=== PATIENT | female | born 1995 | race Caucasian/White ===

== ENCOUNTER 2017-02-18 16:39 | Emergency (ER) | payer MEDICAID ==
[~2017-02-18] VITALS: Ht 170.2 cm; Wt 201.0 kg
[~2017-02-18 16:39] MED LIST: CEPH500 PO
[2017-02-18 16:43] VITALS: BP 144/92; PULSE 78; RESP 18; TEMP 97.7; O2SAT 98
[2017-02-18 17:23] LABS: BLOOD, URINE LARGE (NEG); GLUCOSE,URINE NEG (NEG); KETONE, URINE NEG (NEG); NITRITE,URINE NEG (NEG)
[2017-02-18 17:31] LABS: URINE COLOR YELLOW (YELLW/STRAW)
[2017-02-18 17:33] LABS: COMMENT (UR) CULTURE INDICATED; CULTURE IF INDICATED CULTURE INDICATED; SQUAMOUS EPITHELIAL CELL URINE 0-5 /hpf (0-5)
[2017-02-18] MEDS ORDERED: MOBI15TA PO (17:43)
[2017-02-18] MEDS ORDERED: BACT800T5 PO (17:43)
--- NOTE | 2017-02-18 17:44 | PD ---
HPI Chief Complaint: Complaint Time Seen by Provider: 17:10 Travel History International Travel<30 days: No Contact w/Intl Traveler<30days: No Traveled to known affect area: No History of Present Illness HPI 21-year-old female complains of abdominal pain, vaginal spotting, dysuria and frequency, nausea vomiting. Patient states that she started having intermittent nausea vomiting for the past 5 days. Patient started having low abdominal cramping and sharp pain since yesterday. Patient's is noticed vaginal spotting today. Patient also complaining of dysuria and frequency for the past 2 days. Patient denies any fever chills. Patient denies any back pain. Patient states that she is late for her menstruation period this month. Patient denies any headache. Patient denies any chest pain or shortness of breath. On a scale of 1-10 the pain is a 10 PFSH Past Medical History Asthma: Yes ( A CHILD) Anxiety: Yes Depression: Yes Diminished Hearing: No Immunizations Current: Yes Influenza Vaccination: No ?: Not LMP: 01/14/17 : 1 Miscarriage: 1 Social History Alcohol Use: Yes (RARELY) Tobacco Use: Yes (OCC 3-4 CIGGS/WK) Substance Use: No Allergies-Medications (Allergen,Severity, Reaction): Coded Allergies: No Known Allergies (Verified , 06/17/16) Reported Meds & Prescriptions Reported Meds & Active Scripts Active Review of Systems General / Constitutional: No: Fever Eyes: No: Visual changes HENT: No: Headaches Cardiovascular: No: Chest Pain or Discomfort Respiratory: No: Shortness of Breath Gastrointestinal: Positive: Abdominal Pain Genitourinary: Positive: Frequency, Dysuria, Vaginal Bleeding Musculoskeletal: No: Pain Skin: No Rash Neurologic: No: Weakness Psychiatric: No: Depression Endocrine: No: Polydipsia Hematologic/Lymphatic: No: Easy Bruising Physical Exam Narrative GENERAL: Well-nourished, well-developed patient. SKIN: Focused skin assessment warm/dry. HEAD: Normocephalic. EYES: No scleral icterus. No injection or drainage. NECK: Supple, trachea midline. No JVD or lymphadenopathy. CARDIOVASCULAR: Regular rate and rhythm without murmurs, gallops, or rubs. RESPIRATORY: Breath sounds equal bilaterally. No accessory muscle use. GASTROINTESTINAL: Abdomen soft, non-tender, nondistended. MUSCULOSKELETAL: No cyanosis, or edema. BACK: Nontender without obvious deformity. No CVA tenderness. 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 Patient has small amount of whitish discharge in the vaginal vault. No cervical motion tenderness. Uterus is nonenlarged and nontender on palpation. No adnexal masses or tenderness. Data Data Last Documented VS Vital Signs Date Time Temp Pulse Resp B/P Pulse Ox O2 Delivery O2 Flow Rate FiO2 02/18/17 16:43 97.7 78 18 144/92 98 Orders Urinalysis - C+S If Indicated (02/18/17 17:10) Gc And Chlamydia Pcr (02/18/17 17:23) Wet Prep Profile (02/18/17 17:23) Ed Urine Pregnancytest Poc (02/18/17 17:23) Urine Culture (02/18/17 17:15) Labs Laboratory Tests Test 02/18/17 17:15 Urine Color YELLOW Urine Turbidity CLOUDY Urine pH 6.0 Urine Specific [place] 1.015 Urine Protein 100 mg/dL Urine Glucose (UA) NEG mg/dL Urine Ketones NEG mg/dL Urine Occult Blood LARGE Urine Nitrite NEG Urine Bilirubin NEG Urine Leukocyte Esterase SMALL Urine RBC 25-49 /hpf Urine WBC 25-49 /hpf Urine Squamous Epithelial 0-5 /hpf Cells Microscopic Urinalysis Comment CULTURE INDICATED MDM Medical Decision Making Medical Screen Exam Complete: Yes Emergency Medical Condition: Yes Interpretation(s) 1742 PM. UA positive for WBC, RBC. Urine test negative. Differential Diagnosis Differential diagnosis including UTI, pyelonephritis, cervicitis, PID, threatened AB, ectopic . Narrative Course 21-year-old female with low abdominal pain, vaginal spotting, dysuria and frequency. Diagnosis Primary Impression: UTI (urinary tract infection) Qualified Code: N30.00 - Acute cystitis without hematuria Patient Instructions: General Instructions Additional Instructions: Take medications as directed. Follow-up with personal physician. Encourage by mouth fluids. Return if worse. Med/Other Pt SpecificInfo: Prescription(s) given Scripts Meloxicam (Mobic)15 Mg Tab15 Mg PO DAILY #20 TAB Prov:Cedric Harrison MD 02/18/17 Sulfamethoxazole-Trimethoprim (Bactrim DS)800-160 Mg Tab1 Tab PO BID #14 TAB Prov:Cedric Harrison MD 02/18/17 Disposition: 01 DISCHARGE HOME Condition: Stable Cedric Harrison MD February 18, 2017 17:44
[2017-02-18 20:53] LABS: CHLAMYDIA PCR NOT DETECTED (NOT DETECT); NEISSERIA PCR NOT DETECTED (NOT DETECT)
== END 2017-02-18 17:55 | disposition home or self-care (01) ==
LOC: PHED 16:39
DX: N39.0 Urinary tract infection, site not specified (principal); R11.2 Nausea with vomiting, unspecified; J45.909 Unspecified asthma, uncomplicated; F32.9 Major depressive disorder, single episode, unspecified; F41.9 Anxiety disorder, unspecified; F17.210 Nicotine dependence, cigarettes, uncomplicated
CPT/HCPCS: 81001; 84703; 87086; 87210; 87491; 87591; 99284

== ENCOUNTER 2017-03-13 00:20 | Observation (INO) | payer MEDICAID ==
[~2017-03-13] VITALS: Ht 167.6 cm; Wt 181.4 kg
[2017-03-13] VITALS (9 sets, daily range): BP systolic 108–142; BP diastolic 66–86; PULSE 67–97; RESP 18–22; TEMP 96.6–97.9; O2SAT 91–99
[~2017-03-13 00:20] MED LIST changes: +BACT800T5 PO; -CEPH500 PO; +MOBI15TA PO
[2017-03-13] MEDS ORDERED: KETOROLAC TROMETHAMINE 60 MG/2 ML (IM) VIAL IM ONE (01:15)
[2017-03-13] MEDS ORDERED: ORPHENADRINE INJ 60 MG/2 ML AMP IM ONE (01:15)
[2017-03-13] MEDS ORDERED: HYDROmorphone HCL PF 1 MG/ML VIAL IM ONE (02:00)
--- NOTE | 2017-03-13 02:06 | RADHPO ---
EXAM DATE/TIME: 03/13/2017 01:28 [facility] COMPARISON: No previous studies available for comparison. INDICATIONS : Right lumbar spine pain. No known injury. MEDICAL HISTORY : None. SURGICAL HISTORY : None. ENCOUNTER: Initial ACUITY: 2 days PAIN SCORE: 10/10 LOCATION: Right lumbar spine FINDINGS: Two view examination was performed. There are five non-rib bearing vertebral bodies. The vertebral bodies are in normal alignment without evidence of subluxation or scoliosis. The disc spaces are miryam ntained. The pedicles are intact. Bony mineralization is normal. No fracture is identified. CONCLUSION: Normal examination for a patient of this age. Jessee Anglin MD on March 13, 2017 at 2:02 Board Certified Radiologist. This report was verified electronically.
--- NOTE | 2017-03-13 02:08 | RADHPO ---
EXAM DATE/TIME: 03/13/2017 01:36 [facility] COMPARISON: No previous studies available for comparison. INDICATIONS : Right hip pain. No known injury. MEDICAL HISTORY : None. SURGICAL HISTORY : None. ENCOUNTER: Initial ACUITY: 2 days PAIN SCORE: 10/10 LOCATION: Right pelvis FINDINGS: A two view examination of the right hip was performed. The primary and secondary trabecular pattern of the femoral neck is intact. The hip joint is of normal width without significant sclerosis or bon y hypertrophy. The acetabulum is grossly intact. CONCLUSION: Normal examination for a patient of this age. Jessee Anglin MD on March 13, 2017 at 2:04 Board Certified Radiologist. This report was verified electronically.
[2017-03-13] MEDS ORDERED: NAPR500T PO (02:29)
[2017-03-13] MEDS ORDERED: TRAM50TA PO (02:29)
--- NOTE | 2017-03-13 02:29 | PD ---
HPI Chief Complaint: Back/ Neck Pain or Injury Time Seen by Provider: 01:05 Travel History International Travel<30 days: No Contact w/Intl Traveler<30days: No Traveled to known affect area: No History of Present Illness HPI This is a 21-year-old female who has a history of morbid obesity who presents to the emergency department with pain in her right hip and lower back, constant , severe, worse when she walks, improved with rest. The pain is nonradiating. She denies any associated numbness or weakness. She's had no loss of her bowels or bladder. She denies any dysuria, frequency or urgency. She denies any fevers or chills. She's had no injuries. PFSH Past Medical History Asthma: Yes ( A CHILD) Anxiety: Yes Depression: Yes Diminished Hearing: No Immunizations Current: Yes ?: Unknown LMP: on it now : 1 Miscarriage: 1 Social History Alcohol Use: Yes (RARELY) Tobacco Use: Yes (OCC 3-4 CIGGS/WK) Substance Use: No Allergies-Medications (Allergen,Severity, Reaction): Coded Allergies: No Known Allergies (Verified , 03/13/17) Reported Meds & Prescriptions Reported Meds & Active Scripts Active No Active Prescriptions or Reported Medications Review of Systems Except as stated in HPI: all other systems reviewed are Neg Physical Exam Narrative GENERAL: Morbidly obese SKIN: Focused skin assessment warm and dry. HEAD: Atraumatic. Normocephalic. EYES: Pupils equal and round. No injection or drainage. ENT: Moist mucous membranes NECK: Trachea midline. CARDIOVASCULAR: Regular rate and rhythm. No murmur appreciated. RESPIRATORY: Clear to auscultation. Breath sounds equal bilaterally. GASTROINTESTINAL: Abdomen soft, non-tender, nondistended. MUSCULOSKELETAL: No focal midline lumbar tenderness. Pain with straight leg raise on the right. NEUROLOGICAL: Awake and alert. No obvious cranial nerve deficits. 5 out of 5 strength in the bilateral lower extremities with normal gross sensation in the lower extremities to light touch. PSYCHIATRIC: Appropriate mood and affect; insight and judgment normal. Data Data Last Documented VS Vital Signs Date Time Temp Pulse Resp B/P Pulse Ox O2 Delivery O2 Flow Rate FiO2 03/13/17 02:15 18 03/13/17 00:36 97.5 97 132/79 98 Orders Spine, Lumbar - Ltd (Ap & Lat) (03/13/17 ) Hip, Uni(Ap&Lat) Wo Ap Pelvis (03/13/17 ) Orphenadrine Inj (Norflex Inj) (03/13/17 01:15) Ketorolac Inj (Toradol Inj) (03/13/17 01:15) Hydromorphone Pf Inj (Dilaudid Pf Inj) (03/13/17 02:00) MDM Medical Decision Making Medical Screen Exam Complete: Yes Emergency Medical Condition: Yes Interpretation(s) Afebrile, mild tachycardia Last 24 hours Impressions Lumbar Spine X-Ray 03/13/17 0000 Signed Impressions: Service Date/Time: Monday, March 13, 2017 01:28 - CONCLUSION: Normal examination for a patient of this age. Jessee Anglin MD Hip X-Ray 03/13/17 0000 Signed Impressions: Service Date/Time: Monday, March 13, 2017 01:36 - CONCLUSION: Normal examination for a patient of this age. Jessee Anglin MD Differential Diagnosis Compression fracture, osteoarthritis, degenerative disc disease Narrative Course This is a 21-year-old female who presents to the emergency department with right sided back and hip pain. She has a positive straight leg raise on the right. I suspect she has either a herniated disc or lumbar strain. She has a normal neurologic exam and no red flags for cauda equina syndrome. X-rays of the low back and hip were obtained which were reassuring. Unfortunately patient is at very high risk for a musculoskeletal injury given her obesity. She was given pain control, muscle relaxer and an anti-inflammatory. She'll be discharged home and referred to orthopedics as an outpatient. Diagnosis Primary Impression: Lumbar strain Qualified Code: S39.012A - Lumbar strain, initial encounter Referrals: Harish Modi Jr., MD Patient Instructions: General Instructions Additional Instructions: If you develop weakness of your legs, difficulty walking, numbness of your legs or your genital or rectal area, loss of your bowel or bladder, or difficulty urinating return to the emergency department immediately. Followup with your primary care physician in one week if your symptoms have not improved. Med/Other Pt SpecificInfo: Prescription(s) given Scripts Naproxen 500 Mg [id number] Mg PO BID PRN (PAIN SCALE 4 TO 10) #20 TAB Prov:Shayna Pineda MD 03/13/17 Tramadol 50 Mg Tab50 Mg PO Q6H PRN (PAIN) #10 TAB Prov:Shayna Pineda MD 03/13/17 Disposition: 01 DISCHARGE HOME Condition: Stable Shayna Pineda MD Mar 13, 2017 02:29
[2017-03-13 03:08] LABS: AUTOMATED NEUTROPHIL # 6.1 TH/MM3 (1.8-7.7); BASOPHIL # 0.4 TH/MM3 (0-0.2); BASOPHIL % 3.8 % (0.0-2.0); EOSINOPHIL # 0.4 TH/MM3 (0-0.4); EOSINOPHIL % 3.5 % (0.0-4.0); HEMATOCRIT 39.1 % (35.0-46.0); HEMO FLAGS DIFF FINAL; LYMPH % 33.8 % (9.0-44.0); LYMPHOCYTE # 3.8 TH/MM3 (1.0-4.8); MEAN CELL VOLUME 87.2 FL (80.0-100.0); MEAN CORPUSCULAR HEMOGLOBIN 29.3 PG (27.0-34.0); MEAN CORPUSCULAR HGB CONC 33.5 % (32.0-36.0); MONO % 5.3 % (0.0-8.0); NEUT % 53.6 % (16.0-70.0); PLATELET COUNT 245 TH/MM3 (150-450); RED BLOOD COUNT 4.49 MIL/MM3 (4.00-5.30); RED CELL DISTRIBUTION WIDTH 12.9 % (11.6-17.2); WHITE BLOOD COUNT 11.3 TH/MM3 (4.0-11.0)
[2017-03-13] MEDS ORDERED: ONDANSETRON HCL 4 MG/2 ML VIAL IV ONE (03:15)
[2017-03-13 03:16] LABS: CHLORIDE 107 MEQ/L (98-107); POTASSIUM 3.7 MEQ/L (3.5-5.1); SODIUM (NA) 141 MEQ/L (136-145)
[2017-03-13 03:20] LABS: ANION GAP 9 MEQ/L (5-15); BICARBONATE 24.6 MEQ/L (21.0-32.0); BLOOD UREA NITROGEN 15 MG/DL (7-18)
[2017-03-13 03:23] LABS: ALT (GPT) 43 U/L (9-42); AST (GOT) 16 U/L (16-38); GLOMERULAR FILTRATION RATE 71 ML/MIN (>89)
[2017-03-13 03:24] LABS: TOTAL BILIRUBIN ADULT 0.4 MG/DL (0.2-1.0)
[2017-03-13 03:26] LABS: ALKALINE PHOSPHATASE 89 U/L (45-117)
[2017-03-13] MEDS ORDERED: SODIUM CHLOR 0.9% 1000 ML INJ 1,000 ML IV ONE (03:30)
[2017-03-13 03:59] LABS: GLUCOSE,URINE NEG (NEG); KETONE, URINE NEG (NEG); NITRITE,URINE NEG (NEG); PH, URINE 5.5 (5.0-8.5)
[2017-03-13 04:06] LABS: BLOOD, URINE MOD (NEG); URINE COLOR YELLOW (YELLW/STRAW)
[2017-03-13 04:07] LABS: COMMENT (UR) CULT NOT INDICATED; CULTURE IF INDICATED CULT NOT INDICATED; SQUAMOUS EPITHELIAL CELL URINE 0-5 /hpf (0-5); WBC, URINE 0-2 /hpf (0-5)
[2017-03-13] MEDS ORDERED: IOHEXOL 350 MG/ML 10 ML VIAL (for RAD DIAG) IV ONE (04:37)
--- NOTE | 2017-03-13 04:40 | RADHPO ---
EXAM DATE/TIME: 03/13/2017 03:48 [facility] COMPARISON: No previous studies available for comparison. INDICATIONS : Low back pain with nausea past 2 days. IV CONTRAST: 70 cc Omnipaque 350 (iohexol) IV ORAL CONTRAST: No oral contrast ingested. RADIATION DOSE: 44.63 CTDIvol (mGy) MEDICAL HISTORY : None SURGICAL HISTORY : None. ENCOUNTER: Initial ACUITY: 2 days PAIN SCALE: 5/10 LOCATION: low back TECHNIQUE: Volumetric scanning of the abdomen and pelvis was performed. Using automated exposure control and ad justment of the mA and/or kV according to patient size, radiation dose was kept as low as reasonably achievable to obtain optimal diagnostic quality images. FINDINGS: Lung bases are clear. No pleural or pericardial effusion. Mild fatty liver. Spleen, adrenals, kidneys and pancreas unremarkable. No gallstones or biliary ducta l dilatation. No free fluid. No bowel obstruction. No adenopathy. CONCLUSION: 1. No acute findings on abdomen pelvic CT. Fatty liver. Small hiatal hernia. Jessee Anglin MD on March 13, 2017 at 4:34 Board Certified Radiologist. This report was verified electronically.
--- NOTE | 2017-03-13 04:43 | RADHPO ---
EXAM DATE/TIME: 03/13/2017 03:48 [facility] COMPARISON: No previous studies available for comparison. INDICATIONS : Low back pain past 2 days. RADIATION DOSE: ; Reconstructed from previous dataset MEDICAL HISTORY : None SURGICAL HISTORY : None. ENCOUNTER: Initial ACUITY: 2 days PAIN SCALE: 5/10 LOCATION: low back TECHNIQUE: Volumetric scanning of the lumbar spine was performed. Multiplanar reconstructions in the sagittal, coronal and oblique axial planes were performed. Using automated exposure control and adjustment of the mA and/or kV according to patient size, radiation dose was kept as low as reasonably achievable t o obtain optimal diagnostic quality images. FINDINGS: VERTEBRAE: Normal vertebral body height. ALIGNMENT: No evidence of subluxation. T12-L1: The thecal sac has a normal diameter. No evidence of disc bulge or protrusion. The neural foramina are patent bilaterally. L1-L2: The thecal sac has a normal diameter. No evidence of disc bulge or protrusion. The neural foramina are patent bilaterally. L2-L3: There is a suspected left paracentral disc protrusion with at least mild stenosis of the left lateral recess. L3-L4: Suspected central disc protrusion present with facet arthropathy and at least mild canal stenosis. L4-L5: The thecal sac has a normal diameter. No evidence of disc bulge or protrusion. The neural foramina are patent bilaterally. L5-S1: The thecal sac has a normal diameter. No evidence of disc bulge or protrusion. The neural foramina are patent bilaterally. CONCLUSION: 1. Spinal canal contents not well visualized secondary to patient's size. There is a suspected left p aracentral disc protrusion at L2-3 and central disc protrusion at L3-4 resulting in an at least mild stenosis. No fracture or spondylolisthesis. Jessee Anglin MD on March 13, 2017 at 4:39 Board Certified Radiologist. This report was verified electronically.
[2017-03-13] MEDS ORDERED: ONDANSETRON HCL 4 MG/2 ML VIAL IVP PRN (05:00)
[2017-03-13] MEDS ORDERED: SODIUM CHLORIDE 0.9% FLUSH 10 ML FLUSH IV FLUSH PRN (05:00)
[2017-03-13] MEDS ORDERED: LACTULOSE SYRUP 20 GM/30 ML CUP PO PRN (05:00)
[2017-03-13] MEDS ORDERED: SENNOSIDES 8.6 MG TAB PO PRN (05:00)
[2017-03-13] MEDS ORDERED: HYDROmorphone HCL PF 1 MG/ML VIAL IV PRN (05:00)
[2017-03-13] MEDS ORDERED: MAGNESIUM HYDROXIDE SUSP 30 ML CUP PO PRN (05:00)
[2017-03-13] MEDS ORDERED: BISACODYL 10 MG SUPP RECTAL PRN (05:00)
[2017-03-13] MEDS ORDERED: methylPREDNISolone SOD SUCC 125 MG/2 ML VIAL IV PUSH ONE (05:00)
[2017-03-13] MEDS ORDERED: ACETAMINOPHEN 325 MG TAB PO PRN (05:00)
[2017-03-13] MEDS ORDERED: DIAZEPAM 10 MG TAB PO PRN (05:00)
--- NOTE | 2017-03-13 05:36 | PD ---
Data Data Last Documented VS Vital Signs Date Time Temp Pulse Resp B/P Pulse Ox O2 Delivery O2 Flow Rate FiO2 03/13/17 03:15 82 18 108/69 99 Nasal Cannula 2 03/13/17 00:36 97.5 Orders Spine, Lumbar - Ltd (Ap & Lat) (03/13/17 ) Hip, Uni(Ap&Lat) Wo Ap Pelvis (03/13/17 ) Orphenadrine Inj (Norflex Inj) (03/13/17 01:15) Ketorolac Inj (Toradol Inj) (03/13/17 01:15) Hydromorphone Pf Inj (Dilaudid Pf Inj) (03/13/17 02:00) Complete Blood Count With Diff (03/13/17 02:55) Comprehensive Metabolic Panel (03/13/17 02:55) Urinalysis - C+S If Indicated (03/13/17 02:55) Ed Urine Pregnancytest Poc (03/13/17 02:55) Ondansetron Inj (Zofran Inj) (03/13/17 03:15) Ct Abd/Pel W Iv Contrast(Rout) (03/13/17 ) Ct Lumb Spine W/O Contrast (03/13/17 ) Sodium Chlor 0.9% 1000 Ml Inj (Ns 1000 M (03/13/17 03:30) Iohexol 350 Inj (Omnipaque 350 Inj) (03/13/17 04:37) Admit Order (Ed Use Only) (03/13/17 04:52) Labs Laboratory Tests Test 03/13/17 03/13/17 03:02 03:40 White Blood Count 11.3 TH/MM3 Red Blood Count 4.49 MIL/MM3 Hemoglobin 13.1 GM/DL Hematocrit 39.1 % Mean Corpuscular Volume 87.2 FL Mean Corpuscular Hemoglobin 29.3 PG Mean Corpuscular Hemoglobin 33.5 % Concent Red Cell Distribution Width 12.9 % Platelet Count 245 TH/MM3 Mean Platelet Volume 9.3 FL Neutrophils (%) (Auto) 53.6 % Lymphocytes (%) (Auto) 33.8 % Monocytes (%) (Auto) 5.3 % Eosinophils (%) (Auto) 3.5 % Basophils (%) (Auto) 3.8 % Neutrophils # (Auto) 6.1 TH/MM3 Lymphocytes # (Auto) 3.8 TH/MM3 Monocytes # (Auto) 0.6 TH/MM3 Eosinophils # (Auto) 0.4 TH/MM3 Basophils # (Auto) 0.4 TH/MM3 CBC Comment DIFF FINAL Differential Comment Sodium Level 141 MEQ/L Potassium Level 3.7 MEQ/L Chloride Level 107 MEQ/L Carbon Dioxide Level 24.6 MEQ/L Anion Gap 9 MEQ/L Blood Urea Nitrogen 15 MG/DL Creatinine 1.00 MG/DL Estimat Glomerular Filtration 71 ML/MIN Rate Random Glucose 95 MG/DL Calcium Level 8.3 MG/DL Total Bilirubin 0.4 MG/DL Aspartate Amino Transf 16 U/L (AST/SGOT) Alanine Aminotransferase 43 U/L (ALT/SGPT) Alkaline Phosphatase 89 U/L Total Protein 6.9 GM/DL Albumin 3.2 GM/DL Urine Color YELLOW Urine Turbidity CLEAR Urine pH 5.5 Urine Specific [place] 1.027 Urine Protein NEG mg/dL Urine Glucose (UA) NEG mg/dL Urine Ketones NEG mg/dL Urine Occult Blood MOD Urine Nitrite NEG Urine Bilirubin NEG Urine Leukocyte Esterase NEG Urine RBC 4-9 /hpf Urine WBC 0-2 /hpf Urine Squamous Epithelial 0-5 /hpf Cells Urine Bacteria NONE /hpf Microscopic Urinalysis Comment CULT NOT INDICATED MDM Supervised Visit with CLIFF: No Narrative Course Unfortunately upon discharge when the patient went to stand she slumped to the floor and was unable to get back up. She was complaining of severe Crohn's improved. The ER staff was able to help assist her back into bed. Her mobility is significantly limited by her body habitus. Labs were obtained and CT abdomen and pelvis and lumbar spine were obtained. She does have some evidence of disc herniation on lumbar CT. I suspect this is the etiology of her symptoms. Plan for observation and pain control as well as physical therapy consult. Physician Communication Physician Communication Discussed with Dr. Sanchez Diagnosis Primary Impression: Lumbar herniated disc Referrals: Harish Modi Jr., MD Patient Instructions: General Instructions, Narcotic given in the ED, Sprain ( ED) Departure Forms: Tests/Procedures Additional Instruction: If you develop weakness of your legs, difficulty walking, numbness of your legs or your genital or rectal area, loss of your bowel or bladder, or difficulty urinating return to the emergency department immediately. Followup with your primary care physician in one week if your symptoms have not improved. Scripts Naproxen 500 Mg [id number] Mg PO BID PRN (PAIN SCALE 4 TO 10) #20 TAB Prov:Shayna Pineda MD 03/13/17 Tramadol 50 Mg Tab50 Mg PO Q6H PRN (PAIN) #10 TAB Prov:Shayna Pineda MD 03/13/17 Disposition: 01 DISCHARGE HOME Condition: Stable Shayna Pineda MD Mar 13, 2017 05:36
[2017-03-13] MEDS ORDERED: SODIUM CHLORIDE 0.9% FLUSH 10 ML FLUSH IV FLUSH SCH (09:00)
[2017-03-13] MEDS ORDERED: HEPARIN SODIUM - SQ 10,000 UNITS/ML VIAL SQ SCH (09:00)
[2017-03-13] MEDS ORDERED: DOCUSATE SODIUM 50 MG/SENNA 8.6 MG TAB PO SCH (09:00)
--- NOTE | 2017-03-13 11:36 | PD.PN.STU ---
Subjective Remarks Patient is a 21 yo obese female presenting with acute onset back pain. Her pain started Wednesday morning 03/10, after she woke up. She thought it was due to her sleep position. Pain worsened throughout the day at work and she started taking Ibuprofen and Flexeril which did not relieve her symptoms. The next day she stayed home and in bed most of the day. Wednesday her pain worsened when she was walking to her car and felt like she couldn't walk. She was then brought to the ED. Her pain then was a 10/10. She describes the pain as constant and sharp. Pain is localized across her lower back, worse on her right side. Nonradiating. Feels like she has a back spasm every 30 minutes. Current pain is 6-7/10. She says she does not want to lift her left leg because it makes her back pain worse. Denies numbness, weakness or tingling in her extremities. Denies chest pain, shortness of breath, headache, changes in vision. Denies urinary symptoms. Had a UTI 1 week ago that was treated and has since resolved. No history of trauma to her back or fractures. This is the first time she has experienced this back pain. In the ED she received a dose of IV steroids and Dilaudid, Toradol and Norflex which did not relieve her symptoms. In the ED she fell off the bed when trying to get out of bed. She did not hit her head or pass out. PMH: anxiety, says she has "panic attacks" 2 times per week. She has never been diagnosed with anxiety and is not currently being treated. FH: Noncontributory Social: admits to marijuana use. No other illicit drug use or tobacco or alcohol use. Sexually active with her boyfriend that she lives with. They do not use protection and she is not on control. 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 Allergies: none Objective Vitals Vital Signs Date Time Temp Pulse Resp B/P Pulse Ox O2 Delivery O2 Flow Rate FiO2 03/13/17 08:00 97.7 67 22 113/75 91 03/13/17 05:50 97.9 82 20 129/69 98 03/13/17 05:50 97.9 82 20 129/69 98 03/13/17 05:39 86 20 114/66 95 03/13/17 05:05 88 20 110/71 98 Nasal Cannula 2 03/13/17 03:15 82 18 108/69 99 Nasal Cannula 2 03/13/17 02:35 73 20 127/70 97 Room Air 03/13/17 02:15 18 03/13/17 02:15 18 03/13/17 00:36 97.5 97 18 132/79 98 I/O 03/12/17 03/12/17 03/12/17 03/13/17 03/13/17 03/13/17 07:00 15:00 23:00 07:00 15:00 23:00 Intake Total 1000 ml Balance 1000 ml Intake IV Total 1000 ml # Voids 1 Result Diagram: 03/13/17 0302 03/13/17 0302 Imaging Last Impressions Lumbar Spine X-Ray 03/13/17 0000 Signed Impressions: Service Date/Time: Monday, March 13, 2017 01:28 - CONCLUSION: Normal examination for a patient of this age. Jessee Anglin MD Lumbar Spine CT 03/13/17 0000 Signed Impressions: Service Date/Time: Monday, March 13, 2017 03:48 - CONCLUSION: 1. Spinal canal contents not well visualized secondary to patient's size. There is a suspected left paracentral disc protrusion at L2-3 and central disc protrusion at L3-4 resulting in an at least mild stenosis. No fracture or spondylolisthesis. Jessee Anglin MD Hip X-Ray 03/13/17 0000 Signed Impressions: Service Date/Time: Monday, March 13, 2017 01:36 - CONCLUSION: Normal examination for a patient of this age. Jessee Anglin MD Abdomen/Pelvis CT 03/13/17 0000 Signed Impressions: Service Date/Time: Monday, March 13, 2017 03:48 - CONCLUSION: 1. No acute findings on abdomen pelvic CT. Fatty liver. Small hiatal hernia. Jessee Anglin MD Objective Remarks General: pleasant obese female in no acute distress. Able to maintain adequate conversation with eye contact. Cardiac: RRR, normal S1/S2, no murmurs, rubs or gallops. No peripheral edema. Peripheral pulses 2+ Pulmonary: Clear to auscultation bilaterally Musculoskeletal: No obvious deformities to back or extremities. No bruising, erythema or swelling present. Paraspinal muscle tenderness present. Mild pain when lifting her left leg. Neurological: She is alert and oriented. A/P Assessment and Plan 1. Musculoskeletal back pain: pain most likely due to herniated disc at L3-L4. - Patient is currently stable. Adjusting pain management with muscle relaxer and antiinflammatory, and low dose oral narcotic. - Advised patient to try using a heating pad for further pain relief and physical therapy. - Also discussed weight loss 2. Obesity BMI 64.5 - encouraged weight loss and discussed this being a potential aggravating factor to her back pain 3. Mild leukocytosis - etiology unclear, may be due to menstrual cycle or back inflammation. No active infection. 4. Nonspecific anxiety - recommend outpatient follow up with PCP, or psychologist/psychiatrist. Will try Xanax in the meantime to control her current symptoms. Discharge planning: Will discharge home when ambulation improves. Plan was discussed with the patient and her mother. Patient agreed with plan. Medical Decision Making Impression and Plan The exam, history, and the medical decision-making described in the above note were completed with my assistance as the dictating practitioner. I attest that I had a [id number] encounter with the patient on the same day, and personally performed all of the history, exam, or medical decision making. I reviewed and agree with the plan. Светлана Damon Mar 13, 2017 11:36 Maranda Domínguez MD Mar 13, 2017 11:38
[2017-03-13] MEDS ORDERED: oxyCODONE/ACETAMINOPHEN 7.5 MG/325 MG TAB PO PRN (12:00)
[2017-03-13] MEDS ORDERED: CARISOPRODOL 350 MG TAB PO SCH (12:00)
[2017-03-13] MEDS ORDERED: NAPROXEN 375 MG TAB PO SCH (12:00)
[2017-03-13] MEDS ORDERED: ALPRAZolam 0.5 MG TAB PO ONE (12:00)
[2017-03-13] MEDS ORDERED: CARI350T25 PO (13:16)
[2017-03-13] MEDS ORDERED: OXYC1TAB35 PO (13:16)
--- NOTE | 2017-03-13 13:16 | HHI.DCPOC ---
Discharge Care Plan Diagnosis: (1) Morbid obesity (2) Lumbar herniated disc Goals to Promote Your Health * To prevent worsening of your condition and complications * To maintain your health at the optimal level Directions to Meet Your Goals Take your medications as prescribed Follow your dietary instruction Follow activity as directed Keep your appointments as scheduled Take your immunizations and boosters as scheduled If your symptoms worsen call your PCP, if no PCP go to Urgent Care Center or Emergency Room Smoking is Dangerous to Your Health. Avoid second hand smoke Call the 24-hour hour crisis hotline for domestic abuse at Maranda Domínguez MD Mar 13, 2017 13:16
[2017-03-13] MEDS ORDERED: WALKER WHEELS/F1 MIS (15:10)
[2017-03-13] MEDS ORDERED: COMMODE 3-IN-11 MIS (15:10)
== END 2017-03-13 15:20 | disposition home or self-care (01) ==
LOC: PHED 00:20 → PHEDA 04:53 → PH3B 05:45
PROVIDERS: ADMIT Hospitalist; ATTEND Hospitalist
DX: M51.26 Other intervertebral disc displacement, lumbar region (principal); R00.0 Tachycardia, unspecified; R11.0 Nausea; K44.9 Diaphragmatic hernia without obstruction or gangrene; K76.0 Fatty (change of) liver, not elsewhere classified; M48.06 Spinal stenosis, lumbar region; F32.9 Major depressive disorder, single episode, unspecified; F41.9 Anxiety disorder, unspecified; E66.01 Morbid (severe) obesity due to excess calories; F17.210 Nicotine dependence, cigarettes, uncomplicated; F12.90 Cannabis use, unspecified, uncomplicated
CPT/HCPCS: 72100; 72131; 73502; 74177; 80053; 81001; 84703; 85025; 96374; 96375; 96376; 97162; 99285; G0378; G8987; G8988; J1170; J1644; J1885; J2360; J2405; J2930; J7030; Q9967

== ENCOUNTER 2017-08-13 08:28 | Emergency (ER) | payer MEDICAID, OTHER ==
[~2017-08-13] VITALS: Ht 170.2 cm; Wt 205.0 kg
[~2017-08-13 08:28] MED LIST changes: -BACT800T5 PO; +CARI350T25 PO; +COMMODE 3-IN-11 MIS; -MOBI15TA PO; +NAPR500T2 PO; +OXYC1TAB35 PO; +TRAM50TA PO; +WALKER WHEELS/F1 MIS
[2017-08-13 08:31] VITALS: BP 136/88; PULSE 85; RESP 16; TEMP 98.8; O2SAT 98
[2017-08-13] MEDS ORDERED: methylPREDNISolone SOD SUCC 125 MG/2 ML VIAL IM ONE (08:45)
[2017-08-13] MEDS ORDERED: KETOROLAC TROMETHAMINE 60 MG/2 ML (IM) VIAL IM ONE (08:45)
--- NOTE | 2017-08-13 08:48 | PD ---
HPI Chief Complaint: Back/ Neck Pain or Injury Time Seen by Provider: 08:36 Travel History International Travel<30 days: No Contact w/Intl Traveler<30days: No Traveled to known affect area: No History of Present Illness HPI 22-year-old female presents to emergency department with acute on chronic low back pain for approximately 3 days. States that she has had this back pain for a while but for the past 3 days that has become worse. Patient denies any inciting events or trauma. Patient denies numbness, tingling, IV drug use, loss of bowel or bladder function, or saddle anesthesia. Patient also denies fever or chills. Her low back pain is mainly located in the lumbar region and is moderate. States that she occasionally has sharp radiation pain down her legs worse with movement. Nothing seems to improve her pain. PFSH Past Medical History Asthma: Yes ( A CHILD) Blood Disorders: No Anxiety: Yes Depression: Yes Cancer: No Cardiovascular Problems: No Diminished Hearing: No Endocrine: No Genitourinary: No Immune Disorder: No Musculoskeletal: Yes (SPRAINED RIGHT ANKLE, KNEE, AND ELBOW. ) Neurologic: No Psychiatric: Yes Reproductive: No Respiratory: Yes Immunizations Current: Yes ?: Not LMP: JUL 2017 : 1 Miscarriage: 1 Social History Alcohol Use: Yes (RARELY) Tobacco Use: Yes (OCC 3-4 CIGGS/WK) Substance Use: Yes (MARIJUANA) Allergies-Medications (Allergen,Severity, Reaction): Coded Allergies: No Known Allergies (Verified Adverse Reaction, Unknown, 08/13/17) Reported Meds & Prescriptions Reported Meds & Active Scripts Active Ibuprofen 800 Mg Tab 800 Mg PO TID 7 Days Medrol Dosepak (Methylprednisolone) 4 Mg Dspk 4 Mg PO DIRECTED Per Pharmacist direction Review of Systems Except as stated in HPI: all other systems reviewed are Neg Physical Exam Narrative GENERAL: Well-nourished, well-developed patient. Morbidly obese SKIN: Focused skin assessment warm/dry. HEAD: Normocephalic. EYES: No scleral icterus. No injection or drainage. NECK: Supple, trachea midline. No JVD CARDIOVASCULAR: Regular rate and rhythm without murmurs, gallops, or rubs. RESPIRATORY: Breath sounds equal bilaterally. No accessory muscle use. MUSCULOSKELETAL: No cyanosis, or edema. BACK: Tender to palpation along the paraspinous muscles and sacroiliac joints. No CVA tenderness present. Neurovascularly intact Data Data Last Documented VS Vital Signs Date Time Temp Pulse Resp B/P (MAP) Pulse Ox O2 Delivery O2 Flow Rate FiO2 08/13/17 12:51 100 08/13/17 08:31 98.8 85 16 Orders Orders Methylprednisolone So Succ Inj (Solumedr (08/13/17 08:45) Ketorolac Inj (Toradol Inj) (08/13/17 08:45) Ed Discharge Order (08/13/17 09:35) Ondansetron Odt (Zofran Odt) (08/13/17 10:00) Acetamin-Hydrocod 325-7.5 Mg ([place] 7.5 (08/13/17 10:00) MDM Medical Decision Making Medical Screen Exam Complete: Yes Emergency Medical Condition: Yes Differential Diagnosis Acute lumbago versus muscle spasm versus fracture Narrative Course 22-year-old female presents to emergency department with acute on chronic low back pain for approximately 3 days. States that she has had this back pain for a while that for the past 3 days that has become worse. Patient denies any inciting events or trauma. Patient denies numbness, tingling, IV drug use, loss of bowel or bladder function, or saddle anesthesia. Patient also denies fever or chills. Her low back pain is mainly located in the lumbar region and is moderate. States that she occasionally has sharp radiation pain down her legs worse with movement. Nothing seems to improve her pain. Vital signs stable Patient resting comfortably in bed. Mild expansion of pain upon going from a laying to sitting position. TTP along lumbar paraspinous muscles H&P consistent with acute on chronic lumbago with radiculopathy. Patient received multiple medications at last visit and states she became sick. Dilaudid was one of the medications. I was reluctant to administer any narcotics as this caused her nausea last ER visit. I spoke with patient regarding seeing a specialist or a primary care physician and she states that she has. He has been unable to see the specialist because "they have not called her back". Educated patient on weight loss. Patient will be treated with Medrol Dosepak and ibuprofen palpation. Upon discharge, patient insisted on being admitted for back pain so I ordered physical therapy. While awaiting physical therapy evaluation patient decided that she wanted to go home because she did not want to miss her next doctor's appointment. Patient discharged and advised weight loss and follow-up with orthopedic doctor. Diagnosis Primary Impression: Lumbago with sciatica Qualified Codes: M54.42 - Lumbago with sciatica, left side; M54.41 - Lumbago with sciatica, right side Referrals: [facility] Additional Instructions: Perform light stretches of the lower back and legs, and alternate heat and ice packs. If you develop increased pain, weakness, fever, chills, or bowel or bladder issues, return to the ED for further treatment and evaluation. Follow up with your primary care physician within 2-3 days. If you do not have a primary care physician, follow up with [facility]. If your symptoms or issue persist or worsen, return to the emergency department. Scripts Ibuprofen (Ibuprofen) 800 Mg Tab 800 MG PO TID for Arthritis Pain for 7 Days, TAB 0 Refills Prov: Ariela Bright MD 08/13/17 Methylprednisolone Dosepak (Medrol Dosepak) 4 Mg Dspk 4 MG PO DIRECTED, #1 DSPK 0 Refills Per Pharmacist direction Prov: Ariela Bright MD 08/13/17 Disposition: 01 DISCHARGE HOME Condition: Stable Henny Gant Aug 13, 2017 08:48
[2017-08-13] MEDS ORDERED: IBUP1TAB7 PO (08:50)
[2017-08-13] MEDS ORDERED: MEDR4PAK PO (08:50)
[2017-08-13] MEDS ORDERED: ACETAMINOPHEN/HYDROcodone 325 MG/7.5 MG TAB PO ONE (10:00)
[2017-08-13] MEDS ORDERED: ONDANSETRON ODT 4 MG TAB PO ONE (10:00)
== END 2017-08-13 12:51 | disposition home or self-care (01) ==
LOC: NEPD 08:28
DX: M54.41 Lumbago with sciatica, right side (principal); M54.42 Lumbago with sciatica, left side; G89.29 Other chronic pain; F17.210 Nicotine dependence, cigarettes, uncomplicated
CPT/HCPCS: 96372; 99284; J1885; J2930